=== PATIENT | male | born 1980 | race Caucasian/White ===

== ENCOUNTER 2018-12-27 15:12 | Emergency (ER) | payer SELFPAY ==
--- NOTE | 2018-12-27 15:22 | ER Report ---
History and Physical Time Seen By MD: 15:21 Hx. of Stated Complaint: chest pain for 1 day. was on and off, became consistant this morning HPI/ROS CHIEF COMPLAINT: L side chest pain HISTORY OF PRESENT ILLNESS: Pt here for evaluation of left sided chest pain. PT works nights. Pt states he woke up yesterday at 10 with some left sided chest pain that he discribes as dull. No sob. no nausea. pt does not notice any changes with exertion or rest. Pain comes and goes. currently 11/17. no cough. Pt took too aspirin yesterday with the pain. decided to get checked today. Pt denies any medical hx for himself however patient has not seen a doctor in 3 years since he has moved [place] [facility]. Pts father did of heart attack at 65. REVIEW OF SYSTEMS: Constitutional: No fever, no chills. Eyes: No discharge. ENT: No sore throat. Cardiovascular: + chest pain, no palpitations. Respiratory: No cough, no shortness of breath. Gastrointestinal: No abdominal pain, no vomiting. Genitourinary: No hematuria. Musculoskeletal: No back pain. Skin: No rashes. Neurological: No headache. Allergies: Coded Allergies: No Known Drug Allergies (Unverified , 12/27/18) Past Medical/Surgical History PMhx: denies Pshx: r knee arthroscopic Reviewed Nurses Notes: Yes Old Medical Records Reviewed: No (never been here before) Hx Substance Use Disorder: No Hx Alcohol Use: No Constitutional Vital Sign - Last 24 Hours 12/27/18 12/27/18 12/27/18 12/27/18 15:16 15:17 15:27 15:30 Temp 99.0 Pulse 79 84 Resp 16 39 B/P (MAP) 141/90 141/90 (107) 127/76 (93) Pulse Ox 94 91 O2 Delivery Room Air 12/27/18 12/27/18 12/27/18 12/27/18 15:34 15:40 15:42 15:43 Pulse 82 Resp 13 B/P (MAP) 125/80 (95) 104/77 (86) Pulse Ox 91 O2 Flow Rate 2.0 12/27/18 12/27/18 12/27/18 12/27/18 15:50 15:57 16:00 16:12 Pulse 72 69 Resp 13 25 B/P (MAP) 105/67 (80) 109/66 (80) Pulse Ox 95 95 12/27/18 12/27/18 12/27/18 12/27/18 16:27 16:30 16:42 16:57 Pulse 70 63 73 Resp 14 15 13 B/P (MAP) 109/67 (81) Pulse Ox 94 96 96 12/27/18 12/27/18 12/27/18 12/27/18 17:00 17:00 17:15 17:30 Pulse 68 64 72 Resp 18 16 12 B/P (MAP) 106/66 (79) 106/66 (79) 106/73 (84) Pulse Ox 93 96 93 12/27/18 12/27/18 12/27/18 12/27/18 17:35 17:50 18:00 18:05 Pulse 67 64 57 Resp 40 16 14 B/P (MAP) 110/75 (87) Pulse Ox 96 96 97 12/27/18 12/27/18 12/27/18 12/27/18 18:20 18:30 18:35 18:50 Pulse 57 68 64 Resp 13 15 16 B/P (MAP) 112/73 (86) Pulse Ox 96 97 96 12/27/18 12/27/18 12/27/18 12/27/18 19:00 19:05 19:10 19:25 Pulse 60 63 Resp 13 14 12 B/P (MAP) 119/77 (91) Pulse Ox 96 97 95 Physical Exam General Appearance: The patient is alert, has no immediate need for airway protection and no signs of toxicity. Eyes: Pupils equal and round no pallor or injection, EOMI ENT: no pharyngeal erythema or exudates, Mucous membranes are moist, TM are nl b/l Respiratory: There are no retractions, lungs are clear to auscultation. Cardiovascular: Regular rate and rhythm. pulses are equal and symmetrical Gastrointestinal: Abdomen is soft and non tender, no masses, bowel sounds normal, no guarding, no rigidity or rebound Neurological: Cranial nerves II-XII grossly intact, no sensory or motor loss Skin: Warm and dry, no rashes. Musculoskeletal: Neck is supple non tender, no vertebral tenderness Extremities are nontender, nonswollen and have full range of motion. DIFFERENTIAL DIAGNOSIS: After history and physical exam differential diagnosis was considered for acs, costochondritis, angina, undx hypertension Medical Decision Making Data Points Result Diagram: 12/27/18 1519 12/27/18 1519 Laboratory Hematology Test 12/27/18 15:19 12/27/18 18:39 Red Blood Count 5.49 M/uL (4.00-5.60) Mean Corpuscular Volume 90.8 fL (80.0-96.0) Mean Corpuscular Hemoglobin 31.2 pg (26.0-33.0) Mean Corpuscular Hemoglobin Concent 34.3 g/dL (32.0-36.0) Red Cell Distribution Width 12.9 % (11.5-14.5) Mean Platelet Volume 7.4 fL (7.2-11.1) Neutrophils (%) (Auto) 56.4 % (39.4-72.5) Lymphocytes (%) (Auto) 32.5 % (17.6-49.6) Monocytes (%) (Auto) 8.5 % (4.1-12.4) Eosinophils (%) (Auto) 2.1 % (0.4-6.7) Basophils (%) (Auto) 0.5 % (0.3-1.4) Nucleated RBC Relative Count (auto) 0.0 /100WBC Neutrophils # (Auto) 4.1 K/uL (2.0-7.4) Lymphocytes # (Auto) 2.3 K/uL (1.3-3.6) Monocytes # (Auto) 0.6 K/uL (0.3-1.0) Eosinophils # (Auto) 0.2 K/uL (0.0-0.5) Basophils # (Auto) 0.0 K/uL (0.0-0.1) Nucleated RBC Absolute Count (auto) 0.00 K/uL Sodium Level 139 mmol/L (137-145) Potassium Level 3.7 mmol/L (3.5-5.0) Chloride Level 104 mmol/L (98-107) Carbon Dioxide Level 28 mmol/L (22-30) Blood Urea Nitrogen 16 mg/dl (9-21) Creatinine 1.10 mg/dl (0.66-1.25) Glomerular Filtration Rate Calc > 60.0 Random Glucose 87 mg/dl (75-110) Calcium Level 8.5 mg/dl (8.4-10.2) Total Bilirubin 0.6 mg/dl (0.2-1.3) Aspartate Amino Transf (AST/SGOT) 36 U/L (0-35) Alanine Aminotransferase (ALT/SGPT) 46 U/L (0-56) Alkaline Phosphatase 66 U/L (0-126) Total Protein 7.7 g/dl (6.3-8.2) Albumin 4.4 g/dl (3.5-5.0) Troponin I < 0.012 ng/ml Chemistry Test 12/27/18 15:19 12/27/18 18:39 White Blood Count 7.2 k/uL (4.5-11.0) Red Blood Count 5.49 M/uL (4.00-5.60) Hemoglobin 17.1 g/dL (14.0-18.0) Hematocrit 49.9 % (42.0-52.0) Mean Corpuscular Volume 90.8 fL (80.0-96.0) Mean Corpuscular Hemoglobin 31.2 pg (26.0-33.0) Mean Corpuscular Hemoglobin Concent 34.3 g/dL (32.0-36.0) Red Cell Distribution Width 12.9 % (11.5-14.5) Platelet Count 248 K/uL (150-450) Mean Platelet Volume 7.4 fL (7.2-11.1) Neutrophils (%) (Auto) 56.4 % (39.4-72.5) Lymphocytes (%) (Auto) 32.5 % (17.6-49.6) Monocytes (%) (Auto) 8.5 % (4.1-12.4) Eosinophils (%) (Auto) 2.1 % (0.4-6.7) Basophils (%) (Auto) 0.5 % (0.3-1.4) Nucleated RBC Relative Count (auto) 0.0 /100WBC Neutrophils # (Auto) 4.1 K/uL (2.0-7.4) Lymphocytes # (Auto) 2.3 K/uL (1.3-3.6) Monocytes # (Auto) 0.6 K/uL (0.3-1.0) Eosinophils # (Auto) 0.2 K/uL (0.0-0.5) Basophils # (Auto) 0.0 K/uL (0.0-0.1) Nucleated RBC Absolute Count (auto) 0.00 K/uL Glomerular Filtration Rate Calc > 60.0 Calcium Level 8.5 mg/dl (8.4-10.2) Total Bilirubin 0.6 mg/dl (0.2-1.3) Aspartate Amino Transf (AST/SGOT) 36 U/L (0-35) Alanine Aminotransferase (ALT/SGPT) 46 U/L (0-56) Alkaline Phosphatase 66 U/L (0-126) Total Protein 7.7 g/dl (6.3-8.2) Albumin 4.4 g/dl (3.5-5.0) Troponin I < 0.012 ng/ml EKG/Imaging EKG Interpretation nsr @ 80 with LAFB no priors to compare ED Course/Re-evaluation Clinical Indication for ER IV: IV Access ED Course check labs and ekg PTs blood pressure improved with Nitro. Pt not sure if it helped with the dull pain. " I was a 2/10 I could be a 1/10?" Pts initial labs were stable. Will keep pt for second troponin due to pts family hx. If negative suspect pt can go home and follow up with out patient work up . Pt does not have a family doctor so will give him a name of local [facility] doctor for follow up. 12/27/2018 6:05:27 pm S[address] out to Dr. Rodriguez pending second trop and ekg Decision to Disposition Date: Dec 27, 2018 Decision to Disposition Time: 17:26 Depart Departure Latest Vital Signs Vital Signs Date Time Temp Pulse Resp B/P (MAP) Pulse Ox O2 Delivery O2 Flow Rate FiO2 12/27/18 19:25 12 95 12/27/18 19:10 63 12/27/18 19:00 119/77 (91) 12/27/18 15:43 2.0 12/27/18 15:16 99.0 Room Air Impression: Primary Impression: Chest pain Condition: Condition Unchanged Disposition: HOME OR SELF-CARE Referrals: KADE ZAPATA MD, JOHN MD Patient Instructions: Chest Pain (ED) Additional Instructions: Your blood work and ekg today did not show an acute heart attack. This does not mean you do not have heart disease. With your family history I strongly suggest you follow up with a family doctor for further testing (stress test). I have provided you with names of physicians in [place]. Recommend you take a daily aspirin (either 81mg or 325mg) once a day until you have follow up. Problem Qualifiers Primary Impression: Chest pain Chest pain type: unspecified Qualified Codes: R07.9 - Chest pain, unspecified JEANINE ZAPATA DO Dec 27, 2018 15:22
[2018-12-27] MEDS ORDERED: ASPIRIN 81 MG CHEW PO ONE (15:30)
[2018-12-27] MEDS ORDERED: NITROGLYCERIN 0.4 MG SUBL SL SCH (15:30)
--- NOTE | 2018-12-27 15:33 | EKG ---
FACILITY: [facility] - [place] PATIENT NAME: MAYELA ABAD : [id number] MR: [id number] V: [id number] EXAM DATE: ORDERING PHYSICIAN: JEANINE ZAPATA TECHNOLOGIST: Test Reason : Blood Pressure : / mmHG Vent. Rate : 078 BPM Atrial Rate : 078 BPM P-R Int : 178 ms QRS Dur : 118 ms QT Int : 376 ms P-R-T Axes : 069 -64 057 degrees QTc Int : 428 ms Normal sinus rhythm Left anterior fascicular block Abnormal ECG No previous ECGs available Confirmed by JEYSON HEALY ([id number]) on 12/28/2018 6:42:48 AM Referred By: Confirmed By:JEYSON HEALY
[2018-12-27 15:37] LABS: PLATELET COUNT, AUTOMATED 248 K/uL (150-450)
--- NOTE | 2018-12-27 16:03 | RADIOLOGY IMAGING REPORT ---
FACILITY: [facility] - [place] PATIENT NAME: Isra Mayfield : 1980 MR: [id number] V: [id number] EXAM DATE: ORDERING PHYSICIAN: JEANINE ZAPATA TECHNOLOGIST: Location: [facility] [place] Patient: Isra Mayfield : 1980 Visit/Account:[id number] Date of Sevice: 12/27/2018 Chest with lateral, two views. HISTORY: Chest pain. COMPARISON: None. The heart and mediastinum are unremarkable. Pulmonary vessels are unremarkable. The lungs are clear . The pleural surfaces are unremarkable. No pneumothorax. No acute bony abnormalities. IMPRESSION: No evidence of acute cardiopulmonary disease. Report Dictated By: Thomas Le MD at 12/27/2018 3:58 PM Report E-Signed By: Thomas Le MD at 12/27/2018 3:59 PM WSN:[email or web address]
[2018-12-27 19:00] VITALS: BP 119/77
== END 2018-12-27 19:29 | disposition home or self-care (01) ==
LOC: ER 15:23
DX: R07.9 Chest pain, unspecified (principal)
CPT/HCPCS: 36415; 71046; 82040; 82247; 82310; 82374; 82435; 82565; 82947; 84075; 84132; 84155; 84295; 84450; 84460; 84484; 84520; 85025; 93005; 99283